=== PATIENT | female | born 1995 | race Caucasian/White ===

== ENCOUNTER 2017-11-19 21:30 | Emergency (ER) | payer BC ==
[2017-11-19] MEDS: ACETAMINOPHEN 500 MG TAB PO (21:53)
[2017-11-19] MEDS: IBUPROFEN 800 MG TAB PO (22:40)
== END 2017-11-19 23:27 | disposition home or self-care (01) ==
LOC: FTE 21:30
DX: J02.9 Acute pharyngitis, unspecified (principal)
CPT/HCPCS: 99283

== ENCOUNTER 2018-08-02 12:06 | Emergency (ER) | payer SELFPAY, BC | END 2018-08-02 14:47 | disposition home or self-care (01) | LOC: FTE 12:06 | DX: M54.9 Dorsalgia, unspecified (principal); R10.2 Pelvic and perineal pain | CPT/HCPCS: 72040; 72072; 72100; 81025; 99283-25 ==